=== PATIENT | male | born 1980 | race Caucasian/White ===

== ENCOUNTER 2017-10-01 09:53 | Emergency (ER) | payer BC ==
[2017-10-01] MEDS ORDERED: Ondansetron HCl/PF 4 MG/2 ML Vial ONE (10:12)
[2017-10-01 10:22] LABS: #Basophils 0.1 thou/uL (0.0-0.2); #Lymphocytes 1.3 thou/uL (1.20-3.40); #Monocytes 0.5 thou/uL (0.11-0.59); #Neutrophils 7.6 thou/uL (1.40-6.50); %Basophils 1.2 % (0.0-1.0); %Eosinophils 0.4 % (0.0-10.0); %Lymphocytes 13.3 % (21.0-51.0); %Monocytes 5.1 % (0.0-10.0); %Neutrophils 79.9 % (42.0-75.0); Hemoglobin 16.6 g/dL (14.0-18.0); Mean Corpuscular HGB CONC 32.8 g/dL (32.0-36.0); Mean Corpuscular Hemoglobin 29.8 pg (27.0-31.0); Mean Corpuscular Volume 90.6 fl (80.0-94.0); Mean Platelet Volume 7.8 fL (7.4-10.4); Platelet Count 213 thou/uL (130-400); RBC Distribution Width 11.6 % (11.5-14.5); Red Blood Cell (RBC) Count 5.57 mill/uL (4.70-6.10); White Blood Cell (WBC) Count 9.5 thou/uL (4.8-10.8)
[2017-10-01 10:34] LABS: Bilirubin Negative (Negative); Blood, Urine Moderate (Negative); Clarity CLEAR (Clear); Glucose, Urine (Dipstick) Negative (Negative); Leukocyte Negative (Negative); Nitrite Negative (Negative); Protein, Urine (Dipstick) 30 mg/dL (Neg-Trace); Specific Gravity, Urine 1.023 (1.002-1.036); Urobilinogen 0.2 mg/dL (0.2-1.0); pH, Urine 7.5 (5.0-9.0)
[2017-10-01] MEDS ORDERED: Fentanyl 100 MCG/2 ML VIAL ONE (10:38)
[2017-10-01 10:39] LABS: ALT (SGPT) 10 U/L (8-55); AST (SGOT) 16 U/L (5-34); Albumin 4.6 g/dL (3.5-5.0); Alkaline Phosphatase 101 U/L (40-150); Anion Gap 15 mmol/L (10-20); BUN (Urea Nitrogen) 12 mg/dL (8.9-20.6); Bilirubin, Total 0.9 mg/dL (0.2-1.2); Calc. Creatinine Clearance 0 mL/min (70-130); Calcium 9.9 mg/dL (7.8-10.44); Carbon Dioxide 23 mmol/L (22-29); Chloride 103 mmol/L (98-107); Estimated GFR-MDRD Greater than 90; Globulin 2.7 g/dL (2.4-3.5); Glucose 118 mg/dL (70-105); Lipase 8 U/L (8-78); Potassium 3.9 mmol/L (3.5-5.1); Protein, Total 7.3 g/dL (6.0-8.3); Sodium 137 mmol/L (136-145)
[2017-10-01 10:43] LABS: Bacteria/HPF None Seen HPF (None Seen); Hyaline Casts/LPF 0-3 HYALINE CAST LPF (0-3 Hyaline); RBC/HPF GREATER THAN 50-TNTC HPF (0-3); Squamous Epithelial None Seen HPF (0-3); WBC/HPF 0-3 HPF (0-3)
[2017-10-01] MEDS ORDERED: HYDROmorphone 0.5 MG/0.5 ML SYRINGE ONE (11:49)
--- NOTE | 2017-10-01 11:49 | ULT ---
RIGHT UPPER QUADRANT ULTRASOUND: Date: 10/01/17 HISTORY: Right-sided abdominal pain, flank pain. FINDINGS: Exam limited due to patient inability to stay still and heavy breathing. The liver demonstrates homogeneous echotexture without focal mass or intrahepatic ductal dilatation. There is echogenic sludge in the gallbladder without shadowing gallstones, gallbladder wall thickenin g, or pericholecystic fluid. The common duct measures 6.0 mm in diameter. The pancreas is not well vi sualized due to overlying bowel gas. There is a prominent right renal pelvis. Right kidney is otherwi se unremarkable. No free fluid is seen in Morison's pouch. IMPRESSION: Limited exam. Gallbladder sludge. POS: [facility]
--- NOTE | 2017-10-01 12:13 | CT ---
CT OF THE ABDOMEN AND PELVIS: Date: 10-01-17 Provided Clinical History: Right sided flank pain. FINDINGS: Visualized lung bases appear clear. There is a 1-2 mm calculus present within the right aspect of the urinary bladder. There is mild righ t hydronephrosis and right hydroureter. No additional urinary tract calculi are evident. The solid ab dominal organs are suboptimally evaluated without IV contrast material but demonstrate an otherwise u nremarkable unenhanced CT appearance. There is no bowel dilatation, inflammatory fat stranding, free fluid or free air apparent. The append ix appears normal. The osseous structures demonstrate no concerning osteoblastic or osteolytic lesions. IMPRESSION: 1-2 mm urinary bladder calculus to the right of midline with mild right hydronephrosis and right hydr oureter. POS: OFF
[2017-10-01] MEDS ORDERED: Ketorolac Tromethamine 30 MG/ML VIAL ONE (12:24)
[2017-10-01 15:01] LABS: Lactic Acid 0.9 mmol/L (0.5-2.2)
== END 2017-10-01 15:21 | disposition home or self-care (01) ==
LOC: ERS 09:53
DX: K80.20 Calculus of gallbladder without cholecystitis without obstruction (principal); N13.2 Hydronephrosis with renal and ureteral calculous obstruction
CPT/HCPCS: 36415; 74176; 76705; 80053; 81003; 81015; 82150; 83605; 83690; 85025; 96361; 96374; 96375; J1170; J1885; J2405; J3010